=== PATIENT | male | born 1975 | race Caucasian/White ===

== ENCOUNTER 2021-08-29 11:09 | Emergency (ER) | payer MEDICARE ==
[~2021-08-29] VITALS: Ht 185.4 cm; Wt 106.6 kg
[2021-08-29 11:26] VITALS: BP 120/69
[2021-08-29] MEDS ORDERED: DEXAMETHASONE 4 MG TAB PO SCH (12:30)
[2021-08-29] MEDS ORDERED: DEXA6TAB PO (12:51)
== END 2021-08-29 13:28 | disposition home or self-care (01) ==
LOC: EDH 11:09
DX: M47.22 Other spondylosis with radiculopathy, cervical region (principal); F31.9 Bipolar disorder, unspecified; F90.9 Attention-deficit hyperactivity disorder, unspecified type; Z98.890 Other specified postprocedural states
CPT/HCPCS: 72040; 99283; J8540

== ENCOUNTER 2021-10-15 17:32 | Emergency (ER) | payer MEDICARE ==
[~2021-10-15] VITALS: Ht 30.5 cm; Wt 106.6 kg
[~2021-10-15 17:32] MED LIST: DEXA6TAB PO
[2021-10-15 19:26] LABS: BASOPHILS % (AUTO) 0.6 % (0.0-5.0); EOSINOPHILS % (AUTO) 1.2 % (0.0-8.0); HEMATOCRIT 46.9 % (42-54); LYMPHOCYTES % (AUTO) 22.2 % (21.0-51.0); MEAN CORPUSCULAR HEMOGLOBIN 30.5 pg (27.0-33.0); MEAN CORPUSCULAR HGB CONC 33.3 g/dL (32.0-36.0); MEAN CORPUSCULAR VOLUME 91.6 fL (79-99); MONOCYTES % (AUTO) 6.9 % (3.0-13.0); NEUTROPHILS % (AUTO) 68.8 % (40.0-77.0); PLATELET COUNT (AUTO) 299 K/uL (130-400); RED BLOOD CELL COUNT(AUTO) 5.12 MIL/uL (4.50-6.20); RED CELL DISTRIBUTION WIDTH 13.2 % (11.0-15.5); WHITE BLOOD COUNT (AUTO) 9.3 K/uL (4.8-10.8)
[2021-10-15 19:35] LABS: CREATININE 1.1 mg/dL (0.5-1.5); POTASSIUM 3.6 mmol/L (3.5-5.1)
[2021-10-15 19:40] LABS: BILIRUBIN,TOTAL 0.3 mg/dL (0.2-1.0); TOTAL PROTEIN, SERUM 7.6 g/dL (6.0-8.3)
[2021-10-15] MEDS ORDERED: CLINDAMYCIN IVPB 900MG/50ML 50 ML IV ONE (20:00)
[2021-10-15] MEDS ORDERED: CLIN-141 PO (20:46)
[2021-10-15 21:32] VITALS: BP 120/91
== END 2021-10-15 21:32 | disposition home or self-care (01) ==
LOC: EDH 17:32
DX: S61.012D Laceration without foreign body of left thumb without damage to nail, subsequent encounter (principal); L08.89 Other specified local infections of the skin and subcutaneous tissue; Z79.52 Long term (current) use of systemic steroids; X58.XXXD Exposure to other specified factors, subsequent encounter
CPT/HCPCS: 36415; 80053; 85025; 96365; 99284; J3490

== ENCOUNTER 2022-01-13 10:15 | Emergency (ER) | payer MEDICARE ==
[~2022-01-13] VITALS: Ht 185.4 cm; Wt 104.3 kg
[~2022-01-13 10:15] MED LIST changes: +CLIN-141 PO
[2022-01-13] MEDS ORDERED: SOLU-MEDROL 125MG VIAL IVP ONE (12:30)
[2022-01-13] MEDS ORDERED: LORAZEPAM 2 MG/ML 1 ML VIAL IVP ONE (12:30)
[2022-01-13] MEDS ORDERED: KETOROLAC 15MG/ML VIAL (15MG/ML) IV ONE (12:30)
[2022-01-13] MEDS ORDERED: 0.9%NACL 1000ML 1,000 ML IV ONE (12:30)
[2022-01-13 13:43] VITALS: BP 129/70
== END 2022-01-13 14:24 | disposition home or self-care (01) ==
LOC: EDH 10:15
DX: M54.12 Radiculopathy, cervical region (principal); E86.0 Dehydration; Z98.890 Other specified postprocedural states; Z79.899 Other long term (current) drug therapy
CPT/HCPCS: 72125; 96361; 96374; 96375; 99284; J1885; J2060; J2930; J7030

== ENCOUNTER 2022-01-15 18:38 | Emergency (ER) | payer OTHER, MEDICARE ==
[~2022-01-15] VITALS: Ht 185.4 cm; Wt 104.3 kg
[2022-01-15] MEDS ORDERED: BACI30OI6 TP (20:17)
[2022-01-15] MEDS ORDERED: KETOROLAC 30MG VIAL (30MG/ML) IM ONE (20:30)
[2022-01-15 21:30] VITALS: BP 113/67
== END 2022-01-15 21:30 | disposition home or self-care (01) ==
LOC: EDH 18:38
DX: S91.211A Laceration without foreign body of right great toe with damage to nail, initial encounter (principal); F90.9 Attention-deficit hyperactivity disorder, unspecified type; Z98.890 Other specified postprocedural states; W22.8XXA Striking against or struck by other objects, initial encounter; Y93.89 Activity, other specified; Y92.89 Other specified places as the place of occurrence of the external cause; Y99.8 Other external cause status
CPT/HCPCS: 73630; 96372; 99283; J1885

== ENCOUNTER 2022-05-01 20:35 | Emergency (ER) | payer OTHER, MEDICARE ==
[~2022-05-01] VITALS: Ht 185.4 cm; Wt 102.1 kg
[~2022-05-01 20:35] MED LIST changes: +BACI30OI6 TP
[2022-05-01] MEDS ORDERED: ORPHENADRINE CITRATE 30 MG/ML ML IM ONE (21:00)
[2022-05-01] MEDS ORDERED: KETOROLAC 60 MG VIAL (30MG/ML) IM ONE (21:00)
[2022-05-01] MEDS ORDERED: CYCL10TA16 PO (21:32)
[2022-05-01 21:44] VITALS: BP 131/79
== END 2022-05-01 21:48 | disposition home or self-care (01) ==
LOC: EDH 20:35
DX: M54.50 Low back pain, unspecified (principal); F41.9 Anxiety disorder, unspecified; E11.9 Type 2 diabetes mellitus without complications; F31.9 Bipolar disorder, unspecified; Z79.1 Long term (current) use of non-steroidal anti-inflammatories (NSAID); Z79.52 Long term (current) use of systemic steroids
CPT/HCPCS: 96372 ×2; 99284; J1885; J2360

== ENCOUNTER 2022-06-08 08:29 | Emergency (ER) | payer OTHER, MEDICARE ==
[~2022-06-08] VITALS: Ht 185.4 cm; Wt 99.8 kg
[~2022-06-08 08:29] MED LIST changes: +CYCL10TA16 PO
[2022-06-08 09:48] VITALS: BP 116/76
[2022-06-08] MEDS ORDERED: TRAMADOL HCL 50 MG TABLET PO ONE (10:00)
[2022-06-08] MEDS ORDERED: ORPHENADRINE CITRATE 30 MG/ML ML IM ONE (10:00)
[2022-06-08] MEDS ORDERED: ORPHENADRINE CITRATE 30 MG/ML ML ONE (10:12)
[2022-06-08] MEDS ORDERED: TRAMADOL HCL 50 MG TABLET ONE (10:12)
== END 2022-06-08 11:02 | disposition home or self-care (01) ==
LOC: EDH 08:29
DX: M62.830 Muscle spasm of back (principal); G89.29 Other chronic pain; M54.50 Low back pain, unspecified; F17.200 Nicotine dependence, unspecified, uncomplicated; Z79.52 Long term (current) use of systemic steroids
CPT/HCPCS: 99283; 96372; J2360

== ENCOUNTER 2022-06-15 21:45 | Emergency (ER) | payer OTHER, MEDICARE ==
[~2022-06-15] VITALS: Ht 185.4 cm; Wt 100.2 kg
[2022-06-15 21:50] VITALS: BP 114/69
[2022-06-15] MEDS ORDERED: ACETAMINOPHEN 500 MG TABLET PO ONE (22:30)
[2022-06-15] MEDS ORDERED: CEPHALEXIN 500 MG CAPSULE PO ONE (22:30)
[2022-06-15] MEDS ORDERED: ACET-2247 PO (22:32)
[2022-06-15] MEDS ORDERED: CEPH500B PO (22:32)
[2022-06-19] MEDS ORDERED: LIDOP TP (07:47)
[2022-06-19] MEDS ORDERED: ATOM40 PO (07:47)
[2022-06-19] MEDS ORDERED: ARIP20TA PO (07:47)
[2022-06-19] MEDS ORDERED: MELO10CA3 PO (07:47)
== END 2022-06-15 22:52 | disposition home or self-care (01) ==
LOC: EDH 21:45
DX: G89.18 Other acute postprocedural pain (principal); M54.50 Low back pain, unspecified; F41.9 Anxiety disorder, unspecified; F31.9 Bipolar disorder, unspecified; E66.9 Obesity, unspecified; Z79.52 Long term (current) use of systemic steroids; F17.200 Nicotine dependence, unspecified, uncomplicated; F90.9 Attention-deficit hyperactivity disorder, unspecified type; Z79.899 Other long term (current) drug therapy; Z68.29 Body mass index [BMI] 29.0-29.9, adult

== ENCOUNTER → 2022-07-30 | Emergency (ER) | payer OTHER, MEDICARE ==
[~2022-07-30] VITALS: Ht 185.4 cm; Wt 91.6 kg
[~2022-07-30] MED LIST changes: +ACET1TAB97 PO; +ARIP20TA PO; +ATOM40 PO; -BACI30OI6 TP; -CLIN-141 PO; -DEXA6TAB PO; +MELO10CA3 PO
[2022-07-30 10:10] VITALS: BP 115/85
== END | disposition left against medical advice (07) ==
LOC: EDH 10:07
DX: Z53.21 Procedure and treatment not carried out due to patient leaving prior to being seen by health care provider (principal)

== ENCOUNTER 2022-08-09 10:57 | Emergency (ER) | payer OTHER, MEDICARE ==
[~2022-08-09] VITALS: Ht 185.4 cm; Wt 102.1 kg
[~2022-08-09 10:57] MED LIST changes: -ACET1TAB97 PO
[2022-08-09] MEDS ORDERED: HYDROCODONE/ACETAMINOPHEN 10/325 MG TAB PO SCH (11:30)
[2022-08-09] MEDS ORDERED: ACET1TAB97 PO (11:53)
[2022-08-09 13:27] VITALS: BP 108/79
== END 2022-08-09 13:32 | disposition home or self-care (01) ==
LOC: EDH 10:57
DX: S93.402A Sprain of unspecified ligament of left ankle, initial encounter (principal); F90.9 Attention-deficit hyperactivity disorder, unspecified type; F17.210 Nicotine dependence, cigarettes, uncomplicated; Z98.890 Other specified postprocedural states; Z79.899 Other long term (current) drug therapy; X50.1XXA Overexertion from prolonged static or awkward postures, initial encounter; Y93.01 Activity, walking, marching and hiking; Y92.89 Other specified places as the place of occurrence of the external cause; Y99.8 Other external cause status
CPT/HCPCS: 99284; 73600; 73650; G0463; A4450

== ENCOUNTER → 2022-08-09 | Outpatient (CLI) | payer OTHER, MEDICARE | END | disposition home or self-care (01) | LOC: WHH 09:02 | PROVIDERS: ATTEND Family Medicine | DX: T81.89XA Other complications of procedures, not elsewhere classified, initial encounter (principal); S31.000A Unspecified open wound of lower back and pelvis without penetration into retroperitoneum, initial encounter; G89.29 Other chronic pain; E66.01 Morbid (severe) obesity due to excess calories; F20.9 Schizophrenia, unspecified; F31.30 Bipolar disorder, current episode depressed, mild or moderate severity, unspecified; F90.9 Attention-deficit hyperactivity disorder, unspecified type; F41.9 Anxiety disorder, unspecified; F17.290 Nicotine dependence, other tobacco product, uncomplicated; Z68.29 Body mass index [BMI] 29.0-29.9, adult; Z79.899 Other long term (current) drug therapy; Y83.8 Other surgical procedures as the cause of abnormal reaction of the patient, or of later complication, without mention of misadventure at the time of the procedure; X58.XXXA Exposure to other specified factors, initial encounter; Y93.89 Activity, other specified; Y92.238 Other place in hospital as the place of occurrence of the external cause; Y99.8 Other external cause status | CPT/HCPCS: G0463; A4450 ==

== ENCOUNTER → 2022-08-16 | Outpatient (CLI) | payer OTHER, MEDICARE ==
[~2022-08-16] MED LIST changes: +ACET1TAB97 PO; +LIDOCAINE HCL 4% LTA SOL 4 ML VIAL TP ONE
== END | disposition home or self-care (01) ==
LOC: WHH 08:53
PROVIDERS: ATTEND Family Medicine
DX: T81.89XD Other complications of procedures, not elsewhere classified, subsequent encounter (principal); S31.000D Unspecified open wound of lower back and pelvis without penetration into retroperitoneum, subsequent encounter; G89.29 Other chronic pain; I10 Essential (primary) hypertension; E66.01 Morbid (severe) obesity due to excess calories; F20.9 Schizophrenia, unspecified; F31.30 Bipolar disorder, current episode depressed, mild or moderate severity, unspecified; F90.9 Attention-deficit hyperactivity disorder, unspecified type; F41.9 Anxiety disorder, unspecified; F17.290 Nicotine dependence, other tobacco product, uncomplicated; Z68.29 Body mass index [BMI] 29.0-29.9, adult; Z79.899 Other long term (current) drug therapy; X58.XXXD Exposure to other specified factors, subsequent encounter; Y83.8 Other surgical procedures as the cause of abnormal reaction of the patient, or of later complication, without mention of misadventure at the time of the procedure
CPT/HCPCS: 11042; A6260

== ENCOUNTER → 2022-08-23 | Outpatient (CLI) | payer OTHER, MEDICARE | END | disposition home or self-care (01) | LOC: WHH 08:06 | PROVIDERS: ATTEND Family Medicine | DX: T81.89XD Other complications of procedures, not elsewhere classified, subsequent encounter (principal); S31.000D Unspecified open wound of lower back and pelvis without penetration into retroperitoneum, subsequent encounter; G89.29 Other chronic pain; I10 Essential (primary) hypertension; E66.01 Morbid (severe) obesity due to excess calories; F20.9 Schizophrenia, unspecified; F31.30 Bipolar disorder, current episode depressed, mild or moderate severity, unspecified; F90.9 Attention-deficit hyperactivity disorder, unspecified type; F41.9 Anxiety disorder, unspecified; F17.290 Nicotine dependence, other tobacco product, uncomplicated; Z68.29 Body mass index [BMI] 29.0-29.9, adult; Z79.899 Other long term (current) drug therapy; X58.XXXD Exposure to other specified factors, subsequent encounter; Y83.8 Other surgical procedures as the cause of abnormal reaction of the patient, or of later complication, without mention of misadventure at the time of the procedure | CPT/HCPCS: 11042; A6248 ==

== ENCOUNTER 2022-08-29 16:51 | Emergency (ER) | payer OTHER, MEDICARE ==
[~2022-08-29] VITALS: Ht 185.4 cm; Wt 99.8 kg
[~2022-08-29 16:51] MED LIST changes: -LIDOCAINE HCL 4% LTA SOL 4 ML VIAL TP ONE
[2022-08-29 17:54] LABS: BASOPHILS % (AUTO) 0.3 % (0.0-5.0); EOSINOPHILS % (AUTO) 0.4 % (0.0-8.0); HEMATOCRIT 43.1 % (42-54); LYMPHOCYTES % (AUTO) 10.9 % (21.0-51.0); MEAN CORPUSCULAR HEMOGLOBIN 28.3 pg (27.0-33.0); MEAN CORPUSCULAR HGB CONC 32.9 g/dL (32.0-36.0); MEAN CORPUSCULAR VOLUME 85.9 fL (79-99); MONOCYTES % (AUTO) 4.6 % (3.0-13.0); NEUTROPHILS % (AUTO) 83.4 % (40.0-77.0); PLATELET COUNT (AUTO) 355 K/uL (130-400); RED BLOOD CELL COUNT(AUTO) 5.02 MIL/uL (4.50-6.20); RED CELL DISTRIBUTION WIDTH 13.8 % (11.0-15.5); WHITE BLOOD COUNT (AUTO) 11.2 K/uL (4.8-10.8)
[2022-08-29 18:04] LABS: CREATININE 0.9 mg/dL (0.5-1.5); POTASSIUM 3.5 mmol/L (3.5-5.1)
[2022-08-29 18:09] LABS: ALBUMIN 3.3 g/dL (3.5-5.0)
[2022-08-29 19:16] LABS: APPEARANCE,URINE CLEAR (CLEAR); BILIRUBIN,URINE NEGATIVE (NEGATIVE); COLOR,URINE LIGHT-YELLOW (YELLOW); GLUCOSE, URINE (UA) NEGATIVE (NEGATIVE); KETONES,URINE NEGATIVE (NEGATIVE); LEUKOCYTE ESTERASE ,URINE NEGATIVE Leu/uL (NEGATIVE); NITRATE,URINE NEGATIVE (NEGATIVE); OCCULT BLOOD,URINE NEGATIVE (NEGATIVE); PH,URINE 5.5 (5.0-8.0); PROTEIN,URINE 10 mg/dL (NEGATIVE); UROBILINOGEN,URINE 0.2 mg/dL (0.2-1.0)
[2022-08-29 19:30] LABS: MUCUS,URINE FEW LPF (None Seen); RBC,URINE 0-1 /HPF (0-1)
[2022-08-29] MEDS ORDERED: 0.9%NACL 1000ML 1,000 ML IV ONE (20:00)
[2022-08-29] MEDS ORDERED: LOPERAMIDE HCL 2 MG CAP PO ONE (20:00)
[2022-08-29 22:49] VITALS: BP 122/78
== END 2022-08-29 22:47 | disposition home or self-care (01) ==
LOC: EDH 16:51
DX: K52.9 Noninfective gastroenteritis and colitis, unspecified (principal); E86.0 Dehydration; E87.1 Hypo-osmolality and hyponatremia; E66.9 Obesity, unspecified; F17.200 Nicotine dependence, unspecified, uncomplicated; F90.9 Attention-deficit hyperactivity disorder, unspecified type; Z79.1 Long term (current) use of non-steroidal anti-inflammatories (NSAID); Z68.29 Body mass index [BMI] 29.0-29.9, adult
CPT/HCPCS: 36415; 80053; 81001; 83690; 85025; 96360; 96361; J7030

== ENCOUNTER → 2022-08-30 | Outpatient (CLI) | payer OTHER, MEDICARE ==
[~2022-08-30] MED LIST changes: +LIDOCAINE HCL 4% LTA SOL 4 ML VIAL TP ONE
== END | disposition home or self-care (01) ==
LOC: WHH 08:15
PROVIDERS: ATTEND Family Medicine
DX: T81.89XD Other complications of procedures, not elsewhere classified, subsequent encounter (principal); S31.000D Unspecified open wound of lower back and pelvis without penetration into retroperitoneum, subsequent encounter; G89.29 Other chronic pain; I10 Essential (primary) hypertension; E66.01 Morbid (severe) obesity due to excess calories; F20.9 Schizophrenia, unspecified; F31.30 Bipolar disorder, current episode depressed, mild or moderate severity, unspecified; F90.9 Attention-deficit hyperactivity disorder, unspecified type; F41.9 Anxiety disorder, unspecified; F17.290 Nicotine dependence, other tobacco product, uncomplicated; Z68.29 Body mass index [BMI] 29.0-29.9, adult; Z79.899 Other long term (current) drug therapy; X58.XXXD Exposure to other specified factors, subsequent encounter; Y83.8 Other surgical procedures as the cause of abnormal reaction of the patient, or of later complication, without mention of misadventure at the time of the procedure
CPT/HCPCS: G0463

== ENCOUNTER → 2022-09-06 | Outpatient (CLI) | payer OTHER, MEDICARE ==
[~2022-09-06] MED LIST changes: -LIDOCAINE HCL 4% LTA SOL 4 ML VIAL TP ONE
== END | disposition home or self-care (01) ==
LOC: WHH 08:05
PROVIDERS: ATTEND Family Medicine
DX: T81.89XD Other complications of procedures, not elsewhere classified, subsequent encounter (principal); S31.000D Unspecified open wound of lower back and pelvis without penetration into retroperitoneum, subsequent encounter; G89.29 Other chronic pain; I10 Essential (primary) hypertension; E66.01 Morbid (severe) obesity due to excess calories; F20.9 Schizophrenia, unspecified; F31.30 Bipolar disorder, current episode depressed, mild or moderate severity, unspecified; F90.9 Attention-deficit hyperactivity disorder, unspecified type; F41.9 Anxiety disorder, unspecified; F17.290 Nicotine dependence, other tobacco product, uncomplicated; Z68.29 Body mass index [BMI] 29.0-29.9, adult; Z79.899 Other long term (current) drug therapy; X58.XXXD Exposure to other specified factors, subsequent encounter; Y83.8 Other surgical procedures as the cause of abnormal reaction of the patient, or of later complication, without mention of misadventure at the time of the procedure
CPT/HCPCS: G0463

== ENCOUNTER → 2022-09-20 | Outpatient (CLI) | payer OTHER, MEDICARE ==
[~2022-09-20] MED LIST changes: +LIDOCAINE HCL 4% LTA SOL 4 ML VIAL TP ONE
== END | disposition home or self-care (01) ==
LOC: WHH 08:08
PROVIDERS: ATTEND Family Medicine
DX: T81.89XD Other complications of procedures, not elsewhere classified, subsequent encounter (principal); S31.000D Unspecified open wound of lower back and pelvis without penetration into retroperitoneum, subsequent encounter; G89.29 Other chronic pain; I10 Essential (primary) hypertension; E66.01 Morbid (severe) obesity due to excess calories; F20.9 Schizophrenia, unspecified; F31.30 Bipolar disorder, current episode depressed, mild or moderate severity, unspecified; F90.9 Attention-deficit hyperactivity disorder, unspecified type; F41.9 Anxiety disorder, unspecified; F17.290 Nicotine dependence, other tobacco product, uncomplicated; Z68.29 Body mass index [BMI] 29.0-29.9, adult; Z79.899 Other long term (current) drug therapy; X58.XXXD Exposure to other specified factors, subsequent encounter; Y83.8 Other surgical procedures as the cause of abnormal reaction of the patient, or of later complication, without mention of misadventure at the time of the procedure
CPT/HCPCS: G0463; A6248; A4450

== ENCOUNTER → 2022-09-27 | Outpatient (CLI) | payer OTHER, MEDICARE | END | disposition home or self-care (01) | LOC: WHH 08:03 | PROVIDERS: ATTEND Family Medicine | DX: T81.89XD Other complications of procedures, not elsewhere classified, subsequent encounter (principal); S31.000D Unspecified open wound of lower back and pelvis without penetration into retroperitoneum, subsequent encounter; G89.29 Other chronic pain; I10 Essential (primary) hypertension; E66.01 Morbid (severe) obesity due to excess calories; F20.9 Schizophrenia, unspecified; F31.30 Bipolar disorder, current episode depressed, mild or moderate severity, unspecified; F90.9 Attention-deficit hyperactivity disorder, unspecified type; F41.9 Anxiety disorder, unspecified; F17.290 Nicotine dependence, other tobacco product, uncomplicated; Z68.29 Body mass index [BMI] 29.0-29.9, adult; Z79.899 Other long term (current) drug therapy; X58.XXXD Exposure to other specified factors, subsequent encounter; Y83.8 Other surgical procedures as the cause of abnormal reaction of the patient, or of later complication, without mention of misadventure at the time of the procedure | CPT/HCPCS: 11042 ==

== ENCOUNTER → 2022-10-04 | Outpatient (CLI) | payer OTHER, MEDICARE | END | disposition home or self-care (01) | LOC: WHH 08:14 | PROVIDERS: ATTEND Family Medicine | DX: T81.89XD Other complications of procedures, not elsewhere classified, subsequent encounter (principal); S31.000D Unspecified open wound of lower back and pelvis without penetration into retroperitoneum, subsequent encounter; G89.29 Other chronic pain; I10 Essential (primary) hypertension; E66.01 Morbid (severe) obesity due to excess calories; F20.9 Schizophrenia, unspecified; F90.9 Attention-deficit hyperactivity disorder, unspecified type; F41.9 Anxiety disorder, unspecified; F17.290 Nicotine dependence, other tobacco product, uncomplicated; Z68.29 Body mass index [BMI] 29.0-29.9, adult; Z79.899 Other long term (current) drug therapy; X58.XXXD Exposure to other specified factors, subsequent encounter; Y83.8 Other surgical procedures as the cause of abnormal reaction of the patient, or of later complication, without mention of misadventure at the time of the procedure | CPT/HCPCS: G0463; A4450 ==

== ENCOUNTER → 2022-10-18 | Outpatient (CLI) | payer OTHER, MEDICARE | END | disposition home or self-care (01) | LOC: WHH 08:06 | PROVIDERS: ATTEND Family Medicine | DX: T81.89XD Other complications of procedures, not elsewhere classified, subsequent encounter (principal); S31.000D Unspecified open wound of lower back and pelvis without penetration into retroperitoneum, subsequent encounter; G89.29 Other chronic pain; I10 Essential (primary) hypertension; E66.01 Morbid (severe) obesity due to excess calories; F20.9 Schizophrenia, unspecified; F90.9 Attention-deficit hyperactivity disorder, unspecified type; F32.A Depression, unspecified; F41.9 Anxiety disorder, unspecified; F17.290 Nicotine dependence, other tobacco product, uncomplicated; Z68.29 Body mass index [BMI] 29.0-29.9, adult; Z79.899 Other long term (current) drug therapy; X58.XXXD Exposure to other specified factors, subsequent encounter; Y83.8 Other surgical procedures as the cause of abnormal reaction of the patient, or of later complication, without mention of misadventure at the time of the procedure | CPT/HCPCS: G0463 ==

== ENCOUNTER → 2022-10-25 | Outpatient (CLI) | payer OTHER, MEDICARE | END | disposition home or self-care (01) | LOC: WHH 08:19 | PROVIDERS: ATTEND Family Medicine | DX: T81.89XD Other complications of procedures, not elsewhere classified, subsequent encounter (principal); S31.000D Unspecified open wound of lower back and pelvis without penetration into retroperitoneum, subsequent encounter; G89.29 Other chronic pain; I10 Essential (primary) hypertension; E66.01 Morbid (severe) obesity due to excess calories; F20.9 Schizophrenia, unspecified; F90.9 Attention-deficit hyperactivity disorder, unspecified type; F32.A Depression, unspecified; F41.9 Anxiety disorder, unspecified; F17.290 Nicotine dependence, other tobacco product, uncomplicated; Z68.29 Body mass index [BMI] 29.0-29.9, adult; Z79.899 Other long term (current) drug therapy; X58.XXXD Exposure to other specified factors, subsequent encounter; Y83.8 Other surgical procedures as the cause of abnormal reaction of the patient, or of later complication, without mention of misadventure at the time of the procedure | CPT/HCPCS: G0463; A6248 ==

== ENCOUNTER → 2022-11-01 | Outpatient (CLI) | payer OTHER, MEDICARE ==
[~2022-11-01] MED LIST changes: -LIDOCAINE HCL 4% LTA SOL 4 ML VIAL TP ONE
== END | disposition home or self-care (01) ==
LOC: WHH 08:16
PROVIDERS: ATTEND Family Medicine
DX: T81.89XD Other complications of procedures, not elsewhere classified, subsequent encounter (principal); S31.000D Unspecified open wound of lower back and pelvis without penetration into retroperitoneum, subsequent encounter; G89.29 Other chronic pain; I10 Essential (primary) hypertension; E66.01 Morbid (severe) obesity due to excess calories; F20.9 Schizophrenia, unspecified; F90.9 Attention-deficit hyperactivity disorder, unspecified type; F32.A Depression, unspecified; F41.9 Anxiety disorder, unspecified; F17.290 Nicotine dependence, other tobacco product, uncomplicated; Z68.29 Body mass index [BMI] 29.0-29.9, adult; Z79.899 Other long term (current) drug therapy; X58.XXXD Exposure to other specified factors, subsequent encounter; Y83.8 Other surgical procedures as the cause of abnormal reaction of the patient, or of later complication, without mention of misadventure at the time of the procedure
CPT/HCPCS: G0463

== ENCOUNTER → 2022-11-08 | Outpatient (CLI) | payer OTHER, MEDICARE | END | disposition home or self-care (01) | LOC: WHH 08:18 | PROVIDERS: ATTEND Family Medicine | DX: T81.89XD Other complications of procedures, not elsewhere classified, subsequent encounter (principal); S31.000D Unspecified open wound of lower back and pelvis without penetration into retroperitoneum, subsequent encounter; G89.29 Other chronic pain; I10 Essential (primary) hypertension; E66.01 Morbid (severe) obesity due to excess calories; F20.9 Schizophrenia, unspecified; F90.9 Attention-deficit hyperactivity disorder, unspecified type; F32.A Depression, unspecified; F41.9 Anxiety disorder, unspecified; F17.290 Nicotine dependence, other tobacco product, uncomplicated; Z68.29 Body mass index [BMI] 29.0-29.9, adult; Z79.899 Other long term (current) drug therapy; X58.XXXD Exposure to other specified factors, subsequent encounter; Y83.8 Other surgical procedures as the cause of abnormal reaction of the patient, or of later complication, without mention of misadventure at the time of the procedure | CPT/HCPCS: G0463 ==

== ENCOUNTER 2022-11-27 22:33 | Emergency (ER) | payer OTHER, MEDICARE ==
[~2022-11-27] VITALS: Ht 185.4 cm; Wt 103.6 kg
[2022-11-27 22:39] VITALS: BP 145/86
[2022-11-27] MEDS ORDERED: KETOROLAC 60 MG VIAL (30MG/ML) IM ONE (23:30)
[2022-11-27] MEDS ORDERED: MORPHINE 4 MG SYG IM ONE (23:30)
[2022-11-27] MEDS ORDERED: CYCL5TAB PO (23:52)
[2022-11-27] MEDS ORDERED: ACET-2079 PO (23:52)
[2022-11-27] MEDS ORDERED: IBUP-2070 PO (23:52)
== END 2022-11-28 | disposition home or self-care (01) ==
LOC: EDH 22:33
DX: M54.50 Low back pain, unspecified (principal); G89.29 Other chronic pain; E66.9 Obesity, unspecified; F17.210 Nicotine dependence, cigarettes, uncomplicated; Z68.30 Body mass index [BMI] 30.0-30.9, adult
CPT/HCPCS: 99284; 96372 ×2; J2270; J1885

== ENCOUNTER 2022-12-09 16:51 | Emergency (ER) | payer OTHER, MEDICARE ==
[~2022-12-09] VITALS: Ht 185.4 cm; Wt 105.2 kg
[~2022-12-09 16:51] MED LIST changes: +ACET-2079 PO; +CYCL5TAB PO; +IBUP-2070 PO
[2022-12-09 18:46] VITALS: BP 107/78
[2022-12-09] MEDS ORDERED: KETOROLAC 60 MG VIAL (30MG/ML) IM ONE (22:00)
== END 2022-12-09 22:23 | disposition home or self-care (01) ==
LOC: EDH 16:51
DX: M54.59 Other low back pain (principal); F17.200 Nicotine dependence, unspecified, uncomplicated; F90.9 Attention-deficit hyperactivity disorder, unspecified type; E66.9 Obesity, unspecified; Z79.899 Other long term (current) drug therapy; Z98.890 Other specified postprocedural states; W18.49XA Other slipping, tripping and stumbling without falling, initial encounter; Y93.89 Activity, other specified; Y92.89 Other specified places as the place of occurrence of the external cause; Y99.8 Other external cause status
CPT/HCPCS: 99283; 96372; J1885

== ENCOUNTER 2022-12-26 09:49 | Emergency (ER) | payer OTHER, MEDICARE ==
[~2022-12-26] VITALS: Ht 185.4 cm; Wt 95.3 kg
[2022-12-26] MEDS ORDERED: TETRACAINE HCL 0.5% 4 ML OPHTH SOLN OP SCH (10:30)
[2022-12-26] MEDS ORDERED: ERYT1OIN7 OP (11:14)
[2022-12-26] MEDS ORDERED: ERYTHROMYCIN BASE 0.5% OPHTH OINT 1 GM TUBE OU SCH (11:30)
[2022-12-26 11:48] VITALS: BP 122/69
== END 2022-12-26 12:13 | disposition home or self-care (01) ==
LOC: EDH 09:49
DX: H57.11 Ocular pain, right eye (principal); E78.5 Hyperlipidemia, unspecified; G89.29 Other chronic pain; Z79.899 Other long term (current) drug therapy

== ENCOUNTER 2023-01-21 09:44 | Emergency (ER) | payer OTHER, MEDICARE ==
[~2023-01-21] VITALS: Ht 182.9 cm; Wt 93.0 kg
[~2023-01-21 09:44] MED LIST changes: +ERYT1OIN7 OP
[2023-01-21] MEDS ORDERED: MORPHINE 4 MG SYG IM ONE (11:30)
[2023-01-21 12:23] VITALS: BP 123/78
== END 2023-01-21 12:25 | disposition home or self-care (01) ==
LOC: EDH 09:44
DX: M54.16 Radiculopathy, lumbar region (principal); F31.9 Bipolar disorder, unspecified; E66.9 Obesity, unspecified; F17.200 Nicotine dependence, unspecified, uncomplicated; Z79.899 Other long term (current) drug therapy; Z98.890 Other specified postprocedural states
CPT/HCPCS: 99283; 96372; J2270

== ENCOUNTER → 2025-03-21 | Emergency (ER) | payer MEDICARE, MEDICAID ==
[~2025-03-21] MED LIST changes: -CYCL5TAB PO; +CYCL5TAB3 PO
--- NOTE | 2025-03-21 19:04 | NUR ---
Pt brought into triage, explained reason for visit to Yomi MARTINEZ and ui developer with [employer], pt requesting if his toenail could be trimmed down and/or pulled out because it is causing pain and is unable to step on foot properly. Yomi MARTINEZ stated he could refer him to a stud sheep farmer because in the ED we are unable to do that here, pt verbalzied understanding and stated he will just leave to not waste anyone's time, Yomi MARTINEZ offered to prescribe antibiotics but pt refused. Yomi MARTINEZ apologized at this time and informed pt to return to the ED if pain or toenail gets worse at any time. Pt verbalized understanding and expressed his thanks. No further questions asked at this time. ED charge made aware./TREVOR
--- NOTE | 2025-03-21 19:40 | ERN ---
ED Note History of Present Illness Stated Complaint: TOENAIL ISSUE Time Seen by MD: 19:01 Dictation: PATIENT LEFT THE ER WAITING ROOM WITHOUT EVALUATION AND TREATMENT. Allergies: Coded Allergies: No Known Allergies (Unverified Allergy, Unknown, 08/29/21) Home Meds Active Scripts Erythromycin Base (Erythromycin) 1 Gm Oint...g., 1 GM OP 5X/DAY, #1 TUBE Prov:DAVID IBARRA MECHANICAL TECHNOLOGIST 12/26/22 Ibuprofen (Ibuprofen) 600 Mg Tablet, 600 MG PO Q6H PRN for PAIN, #15 TAB Prov:BELINDA CAMARENA 11/27/22 Cyclobenzaprine HCl (Cyclobenzaprine HCl) 5 Mg Tablet, 5 MG PO DAILYDINNER for 5 Days, #5 TAB Prov:BELINDA CAMARENA 11/27/22 Acetaminophen with Codeine (Acetaminophen-Cod #3 Tablet) 1 Each Tablet, 1 TAB PO Q4H PRN for M54.50 for 5 Days, #10 TAB Prov:BELINDA CAMARENA 11/27/22 Acetaminophen with Codeine (Acetaminophen-Cod #4 Tablet) 1 Each Tablet, 1 EACH PO TID for SEVERE PAIN, #15 TAB Prov:PHUC DUVAL MD 08/09/22 Cyclobenzaprine HCl (Flexeril) 10 Mg Tab, 10 MG PO BID, #30 TAB Prov:SANTANA SANZ 05/01/22 Reported Medications Atomoxetine HCl (Strattera) 40 Mg Cap, 40 MG PO DAILY, CAP 06/19/22 Aripiprazole (Abilify) 20 Mg Tablet, 20 MG PO HS, TAB 06/19/22 Meloxicam, Submicronized (Meloxicam) 10 Mg Capsule, 15 MG PO DAILY, CAP 06/19/22 Past Medical History Past Medical History: Bipolar Additional Past Medical Hx: ADD; ADHD; ANGER MANAGEMENT ISSUES, obesity Surgical History: Other Surgical History Other: SPINE Family History: Negative Social History: Smokers, Drugs, ETOH, Lives with family Review of System Dictation NOT ASSESSED Physical Exam Dictation NOT ASSESSED Medical Decision Making MDM PATIENT LEFT ER WAITING ROOM WITHOUT BEING TREATED DX & DISP Disposition: AMA Departure Condition: Stable Referrals: ASHVIN ALDANA MD (PCP) DEA ELIAS NP March 21, 2025 19:40
== END ==
LOC: EDH 18:58
DX: Z53.21 Procedure and treatment not carried out due to patient leaving prior to being seen by health care provider (principal); E66.9 Obesity, unspecified; F17.200 Nicotine dependence, unspecified, uncomplicated; F31.9 Bipolar disorder, unspecified; F90.9 Attention-deficit hyperactivity disorder, unspecified type; Z79.1 Long term (current) use of non-steroidal anti-inflammatories (NSAID)

== ENCOUNTER 2025-08-14 10:17 | Emergency (ER) | payer MEDICAID, OTHER ==
[~2025-08-14] VITALS: Ht 185.4 cm; Wt 113.1 kg
[~2025-08-14 10:17] MED LIST changes: +IBUP-1492 PO; -IBUP-2070 PO
[2025-08-14 10:21] VITALS: BP 122/79; PULSE 99; RESP 20; TEMP 99.8; O2SAT 94
[2025-08-14] MEDS: HYDROcodone/APAP 5/325 1 TAB TABLET PO ONE (11:05)
--- NOTE | 2025-08-14 11:11 | ERN ---
ED Note History of Present Illness Stated Complaint: WRIST PAIN Chief Complaint: Wrist Pain/Injury Time Seen by MD: 10:20 Time Seen by Midlevel: 10:22 Dictation: 49 y/o male with no medical problems c/o right wrist pain. Pt stats he hit his wrist on the wall 3 days ago and has had pain since. Allergies: Coded Allergies: No Known Allergies (Unverified Allergy, Unknown, 08/29/21) Home Meds Active Scripts Erythromycin Base (Erythromycin) 1 Gm Oint...g., 1 GM OP 5X/DAY, #1 TUBE Prov:FREDMARLORICK DIRECTOR OF FRONT OFFICE 12/26/22 Ibuprofen (Ibuprofen) 600 Mg Tablet, 600 MG PO Q6H PRN for PAIN, #15 TAB Prov:BELINDA CAMARENA 11/27/22 Cyclobenzaprine HCl (Cyclobenzaprine HCl) 5 Mg Tablet, 5 MG PO DAILYDINNER for 5 Days, #5 TAB Prov:BELINDA CAMARENA 11/27/22 Acetaminophen with Codeine (Acetaminophen-Cod #3 Tablet) 1 Each Tablet, 1 TAB PO Q4H PRN for M54.50 for 5 Days, #10 TAB Prov:BELINDA CAMARENA 11/27/22 Acetaminophen with Codeine (Acetaminophen-Cod #4 Tablet) 1 Each Tablet, 1 EACH PO TID for SEVERE PAIN, #15 TAB Prov:PHUC DUVAL MD 08/09/22 Cyclobenzaprine HCl (Flexeril) 10 Mg Tab, 10 MG PO BID, #30 TAB Prov:SANTANA SANZ 05/01/22 Reported Medications Atomoxetine HCl (Strattera) 40 Mg Cap, 40 MG PO DAILY, CAP 06/19/22 Aripiprazole (Abilify) 20 Mg Tablet, 20 MG PO HS, TAB 06/19/22 Meloxicam, Submicronized (Meloxicam) 10 Mg Capsule, 15 MG PO DAILY, CAP 06/19/22 Past Medical History Past Medical History: No Pertinent History Additional Past Medical Hx: denies pmhx Surgical History: Other Surgical History Other: neck, back, and hernia sx Family History: Negative Social History: Smokers, Drugs, ETOH, Lives with family Review of System Dictation Constitutional: Negative for fever,chills, and weight loss Eyes: Negative for injury, pain,redness, and discharge ENT: Negative for injury,pain or swelling Cardiovascular: Negative for chest pain, palpitations, and edema Respiratory: Negative for shortness of breath, cough, and wheezing, Abdomen/GI: Negative for abdominal pain, nausea, vomiting, diarrhea, and constipation Back: Negative for injury and pain : Negative for injury, bleeding and discharge MS/Extremity: Negative for injury and deformity, right wrist pain Skin: Negative for rash, and discoloration Neuro: Negative for headache, weakness, numbness, tingling, and seizure Psych: Negative for suicide ideation, homicidal ideation, and hallucinations Review of Systems: was completed Initial Vital Sign VS Vital Signs Date Time Temp Pulse Resp B/P (MAP) Pulse Ox O2 Delivery O2 Flow Rate FiO2 08/14/25 10:19 99.9 99 20 122/79 94 Room Air 0 08/14/25 10:21 21 Physical Exam Dictation General: awake, alert, NAD Head/Face: Normocephalic, atraumatic Eyes: PERRL, EOMI, vision at baseline ENT: oral cavity clear, TMs clear, no signs of infection Neck: Trachea midline, supple, no nuchal rigidity Cardiovascular: RRR, normal S1/S2, No MRGs, no JVD Respiratory: CTAB, no respiratory distress, No rales or wheezes Abdomen: Soft, non-tender, non-distended, normal bowel sounds, no guarding or rebound. Skin: Warm, dry, normal turgor, no rash MS/Extremity: Pulses equal, no cyanosis, neurovascular intact, FROM Neuro: COAx4, GCS 15, strength 5/5, CN 2-12 intact, normal cerebellar exam, normal gait, Psych: Normal behavior, mood, and affect normal ED Course ED Course Orders Procedure Category Date Status Time Ketorolac PHA 08/14/25 Complete Tromethamine 15mg/Ml 10:30 Hydrocodone/Apap PHA 08/14/25 Complete 5/325 (Coffeen 5/325mg) 10:30 Wrist Comp 3+Vws Rt RAD 08/14/25 Taken 10:31 Current Medications Medications (Trade) Dose Ordered Sig/Glen Route PRN Reason Start Time Stop Time Status Last Admin Dose Admin Acetaminophen/ Hydrocodone Bitart (NORco 5/325MG) 1 tab ONCE ONCE PO 08/14/25 10:30 08/14/25 10:32 DC 08/14/25 11:05 Ketorolac Tromethamine (toRADol) 15 mg ONCE ONCE IM 08/14/25 10:30 08/14/25 10:33 DC 08/14/25 11:04 Vital Signs Date Time Temp Pulse Resp B/P (MAP) Pulse Ox O2 Delivery O2 Flow Rate FiO2 08/14/25 10:21 99.9 99 20 122/79 94 Room Air* 0 21 08/14/25 10:19 99.9 99 20 122/79 94 Room Air 0 Medical Decision Making MDM MDM: 49 y/o male with no medical problems c/o right wrist pain. Pt stats he hit his wrist on the wall 3 days ago and has had pain since. Interpreted by ER MD. No acute findings. Differential diagnosis: Wrist fracture, wrist contusion Rationale: Tests considered and ordered secondary to shared decision making include: Previous outside records reviewed: Old ER visits. Risk of complication and/or morbidity or mortality of patient management: None Medications-Per medication reconciliation Need for hospitalization: Patient does not meet criteria for hospitalization. Need for emergency major/minor surgery: No There are no social concerns with this patient. Prescription drug management Prescriptions will include symptomatic care Patient's prior external medical records from other ER visits were reviewed by me as indicated. Prior testing and results from previous visits were reviewed. Prior tests were taken into account with medical decision making and resource utilization, independent historian/historians were used to obtain complete medical history. I independently interpreted the test that were performed, results were reviewed by me and considered findings on radiology if ordered. Medical management and examination interpretation discussions were had by me with other qualified healthcare professionals as indicated for the patient's care. DX & DISP Disposition: Discharge Departure Impression: Primary Impression: Wrist contusion Condition: Stable Additional Instructions: Your xray is normal. There is no broken bones . You appy ice and elevate to help with swelling. Take tylenol or motrin for pain. Referrals: ASHVIN ALDANA MD (PCP) Time of Disposition: 11:07 I have reviewed the case, and I agree with, Diagnosis and Plan MIGUEL ANGEL BLANCHARD Aug 14, 2025 11:11
--- NOTE | 2025-08-14 12:31 | HMCIMG ---
EXAM: CR right Wrist, 3 View. CLINICAL HISTORY: trauma COMPARISON: None provided. FINDINGS: BONES: No acute fracture or aggressive appearing osseous lesion. JOINTS: No dislocation. The carpal bones demonstrate normal alignment. SOFT TISSUES: The soft tissues are unremarkable. IMPRESSION: No acute osseous abnormality. No acute fracture or dislocation. /[place]
== END 2025-08-14 11:19 | disposition home or self-care (01) ==
LOC: EDH 10:17
DX: S60.211A Contusion of right wrist, initial encounter (principal); F17.200 Nicotine dependence, unspecified, uncomplicated; Z79.1 Long term (current) use of non-steroidal anti-inflammatories (NSAID); Z79.891 Long term (current) use of opiate analgesic; W22.01XA Walked into wall, initial encounter; Y93.89 Activity, other specified; Y92.89 Other specified places as the place of occurrence of the external cause; Y99.8 Other external cause status
CPT/HCPCS: 99283; 73110; 96372; J1885

== ENCOUNTER 2025-10-29 12:30 | Emergency (ER) | payer MEDICARE, MEDICAID ==
[~2025-10-29] VITALS: Ht 185.4 cm; Wt 104.3 kg
--- NOTE | 2025-10-29 13:43 | ERN ---
ED Note History of Present Illness Stated Complaint: SEVERE BACK PAIN Chief Complaint: Back Pain-No Injury Time Seen by MD: 12:32 Time Seen by Midlevel: 12:33 Dictation: 49-year-old male presents to the emergency department due to reported having pain to the right lower back that began yesterday. 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 At that time, she rated the pain as an 8/10. Currently, he states the pain is still an 8/10. He describes the pain as being achy slaps sharp in characteristic. However, he states that he is able to find certain positions of comfort. The patient states that there are certain movements that make the pain present. Currently, he denies having any loss of bowel or bladder and maintains a normal neurological function to both lower extremities. Upon initial evaluation, the patient presents mildly uncomfortable looking. Allergies: Coded Allergies: No Known Allergies (Unverified Allergy, Unknown, 08/29/21) Emergency Care HEALTH AND WELLNESS COACH: None Home Meds Active Scripts Erythromycin Base (Erythromycin) 1 Gm Oint...g., 1 GM OP 5X/DAY, #1 TUBE Prov:DAVID IBARRA 12/26/22 Ibuprofen (Ibuprofen) 600 Mg Tablet, 600 MG PO Q6H PRN for PAIN, #15 TAB Prov:BELINDA CAMARENA 11/27/22 Cyclobenzaprine HCl (Cyclobenzaprine HCl) 5 Mg Tablet, 5 MG PO DAILYDINNER for 5 Days, #5 TAB Prov:BELINDA CAMARENA 11/27/22 Acetaminophen with Codeine (Acetaminophen-Cod #3 Tablet) 1 Each Tablet, 1 TAB PO Q4H PRN for M54.50 for 5 Days, #10 TAB Prov:BELINDA CAMARENA 11/27/22 Acetaminophen with Codeine (Acetaminophen-Cod #4 Tablet) 1 Each Tablet, 1 EACH PO TID for SEVERE PAIN, #15 TAB Prov:PHUC DUVAL MD 08/09/22 Cyclobenzaprine HCl (Flexeril) 10 Mg Tab, 10 MG PO BID, #30 TAB Prov:SANTANA SANZ 05/01/22 Reported Medications Atomoxetine HCl (Strattera) 40 Mg Cap, 40 MG PO DAILY, CAP 06/19/22 Aripiprazole (Abilify) 20 Mg Tablet, 20 MG PO HS, TAB 06/19/22 Meloxicam, Submicronized (Meloxicam) 10 Mg Capsule, 15 MG PO DAILY, CAP 06/19/22 Past Medical History Past Medical History: Bipolar, Schizophrenia Additional Past Medical Hx: CHRONNIC BACK ISSUES, ADHD Surgical History: Other Surgical History Other: ABD HERNIA REPAIR, BACK SX Family History: Negative Social History: Smokers, Drugs, ETOH, Lives with family Review of System Dictation BACK: Back pain Initial Vital Sign VS Vital Signs Date Time Temp Pulse Resp B/P (MAP) Pulse Ox O2 Delivery O2 Flow Rate FiO2 10/29/25 12:56 98.1 92 16 97 Room Air 0 10/29/25 13:01 113/68 21 Physical Exam Dictation General: awake, alert, NAD Head/Face: Normocephalic, atraumatic Eyes: PERRL, EOMI ENT: Oral mucosa moist Neck: Trachea midline, supple Cardiovascular: RRR, no edema Respiratory: Symmetrical, non-labored Abdomen: Soft, non-tender, non-distended, no guarding. Skin: Warm, dry, good turgor, no rash MS/Extremity: Pulses equal, no cyanosis, neurovascular intact, FROM Back: Tenderness to the right paraspinal area, no vertebral tenderness, no step-off deformity. Neuro: COAx4, GCS 15, steady gait, Psych: Normal behavior, mood, and affect normal ED Course ED Course Orders Procedure Category Date Status Time Dexamethasone 4mg/Ml PHA 10/29/25 Complete 1ml Vial (Dexametha 14:00 Lidocaine (Lidoderm PHA 10/29/25 Complete Patch 5%) 14:00 Ketorolac 60mg/2ml PHA 10/29/25 Complete (Toradol 60mg/2ml) 14:00 Current Medications Medications (Trade) Dose Ordered Sig/Glen Route PRN Reason Start Time Stop Time Status Last Admin Dose Admin Dexamethasone Sodium Phosphate (dexaMETHasone 4MG/ML 1ML VIAL) 8 mg ONCE ONCE IM 10/29/25 14:00 10/29/25 14:01 DC 10/29/25 13:58 Ketorolac Tromethamine (toRADol 60MG/ 2ML) 60 mg ONCE ONCE IM 10/29/25 14:00 10/29/25 14:01 DC 10/29/25 13:59 Lidocaine (Lidoderm Patch 5%) 1 patch ONCE ONCE TP 10/29/25 14:00 10/29/25 14:01 DC 10/29/25 13:58 Vital Signs Date Time Temp Pulse Resp B/P (MAP) Pulse Ox O2 Delivery O2 Flow Rate FiO2 10/29/25 13:17 98.2 55 16 120/62 100 Room Air* 0 21 10/29/25 13:01 98.2 90 16 113/68 97 Room Air* 0 10/29/25 12:56 98.1 92 16 97 Room Air 0 Medical Decision Making MDM MDM: Differential diagnosis: Lumbar back sprain, lumbar pain, lumbago. Rationale: Tests considered and ordered secondary to shared decision making include: Previous outside records reviewed: Old ER visits. Risk of complication and/or morbidity or mortality of patient management: None Medications-Per medication reconciliation Need for hospitalization: Patient does not meet criteria for hospitalization. Need for emergency major/minor surgery: No There are no social concerns with this patient. Prescription drug management Prescriptions will include symptomatic care Patient's prior external medical records from other ER visits were reviewed by me as indicated. Prior testing and results from previous visits were reviewed. Prior tests were taken into account with medical decision making and resource utilization, independent historian/historians were used to obtain complete medical history. I independently interpreted the test that were performed, results were reviewed by me and considered findings on radiology if ordered. Medical management and examination interpretation discussions were had by me with other qualified healthcare professionals as indicated for the patient's care. DX & DISP Disposition: Discharge Departure Impression: Primary Impression: Lumbar back sprain Condition: Stable Referrals: LASHA BOLTON MD (PCP) Time of Disposition: 14:49 GERARDO MCKEON Oct 29, 2025 13:43
[2025-10-29] MEDS: LIDOCAINE 5% TOPICAL PATCH TP ONE (13:58)
[2025-10-29 14:50] VITALS: BP 124/63; PULSE 57; RESP 16; TEMP 98.2; O2SAT 98
== END 2025-10-29 15:08 | disposition home or self-care (01) ==
LOC: EDH 12:30
DX: S33.5XXA Sprain of ligaments of lumbar spine, initial encounter (principal); F17.200 Nicotine dependence, unspecified, uncomplicated; F20.9 Schizophrenia, unspecified; F31.9 Bipolar disorder, unspecified; Z79.1 Long term (current) use of non-steroidal anti-inflammatories (NSAID); Z79.891 Long term (current) use of opiate analgesic; Z98.890 Other specified postprocedural states; X50.1XXA Overexertion from prolonged static or awkward postures, initial encounter; Y93.89 Activity, other specified; Y92.89 Other specified places as the place of occurrence of the external cause; Y99.8 Other external cause status
CPT/HCPCS: 99284; 96372 ×2; J1100; J1885